=== PATIENT | male | born 2005 | race Caucasian/White ===

== ENCOUNTER 2024-06-22 10:52 | Emergency (ER) | payer OTHER ==
[~2024-06-22] VITALS: Ht 182.9 cm; Wt 118.1 kg
[2024-06-22 11:36] VITALS: BP 151/85
== END 2024-06-22 11:36 | disposition home or self-care (01) ==
LOC: ED 10:52
DX: S80.11XA Contusion of right lower leg, initial encounter (principal); W20.8XXA Other cause of strike by thrown, projected or falling object, initial encounter
CPT/HCPCS: 73590; 99283